=== PATIENT | female | born 1995 | race Caucasian/White ===

== ENCOUNTER 2019-07-28 22:49 | Emergency (ER) | payer OTHER ==
[~2019-07-28] VITALS: Ht 157.5 cm; Wt 46.3 kg
[2019-07-28 22:57] VITALS: Ht 157.5 cm; Wt 46.3 kg
[2019-07-29 00:09] VITALS: BP 106/74
== END 2019-07-29 00:09 | disposition home or self-care (01) ==
LOC: ED 22:49
DX: S09.8XXA Other specified injuries of head, initial encounter (principal); W22.8XXA Striking against or struck by other objects, initial encounter; Y93.89 Activity, other specified; Y92.89 Other specified places as the place of occurrence of the external cause; Y99.0 Civilian activity done for income or pay